=== PATIENT | female | born 1970 | race Caucasian/White ===

== ENCOUNTER 2020-03-14 12:44 | Emergency (ER) | payer SELFPAY ==
[2020-03-14 12:57] VITALS: BP 122/85; PULSE 79; RESP 18; TEMP 36.4; O2SAT 98; BMI 25.8
--- NOTE | 2020-03-14 16:44 | XRR_ITS ---
PROCEDURE INFORMATION: Exam: XR Chest, 1 View Exam date and time: 03/14/2020 4:46 PM Age: 50 years old Clinical indication: Chest pain TECHNIQUE: Imaging protocol: XR of the chest Views: 1 view. COMPARISON: CR Chest 1 [place] [id number] 06/13/2018 6:30 PM FINDINGS: Lungs: Unremarkable. No consolidation. Pleural space: Unremarkable. No pleural effusion. No pneumothorax. Heart/Mediastinum: Unremarkable. No cardiomegaly. Bones/joints: Unremarkable. XR/XR chest 1V portable [id number] IMPRESSION: No acute findings.
--- NOTE | 2020-03-14 16:44 | ECG_ITS ---
[facility] Test Date: 2020-03-14 Pat Name: Mackenzie Daley Department: Room: Gender: Female Fulfillment Representative: : 1970 Requested By: Juan Nails Order Number: [id number] De Santiago MD: Jonnathan Sanabria M.D. Measurements Intervals [place] Rate: 74 P: 58 CA: 130 QRS: 50 QRSD: 86 T: 50 QT: 383 QTc: 426 Interpretive Statements SINUS RHYTHM Compared to ECG 06/13/2018 17:33:41 Ventricular premature complex(es) no longer present Electronically Signed On 03-15-2020 11:01:14 WILL CALL CLERK by Jonnathan Sanabria M.D. [id number]
--- NOTE | 2020-03-14 16:46 | USR_ITS ---
PROCEDURE INFORMATION: Exam: US Pelvis Complete, Transabdominal and US Pelvis, Transvaginal Exam date and time: 03/14/2020 4:51 PM Age: 50 years old Clinical indication: Menstruation abnormalities; Excessive menstruation; Patient HX: H/o leep procedure; Additional info: Vaginal bleeding for weeks TECHNIQUE: Imaging protocol: Real-time transabdominal and transvaginal pelvic ultrasound (complete) with image documentation. Transvaginal imaging was used for better evaluation of the endometrium, adnexa, and/or cervix. COMPARISON: No relevant prior studies available. FINDINGS: Uterus/cervix: Uterus is normal. Endometrial stripe is 10 mm. The uterus measures 10.6 cm x 5.6 cm x 6.7 cm. Right adnexa: is not optimally visualized There is a septated cyst posterior to the right adnexa measuring 6.3 cm x 2.8 cm. This finding may represent a paraovarian cyst Left adnexa: Normal ovary not optimally visualized. Intraperitoneal space: Circumscribed fluid collection in the cul-de-sac right adnexa Urinary bladder: Normal. US/US pelvis lmt w transvag IMPRESSION: 1. Negative uterus and endometrium 2. Septated cyst posterior to the right adnexa possible paraovarian cyst 3. The ovaries are not well visualized.
--- NOTE | 2020-03-14 16:48 | ED_ITS ---
HPI - Chest Pain General: Chief Complaint: Chest Pain Stated Complaint: Chest pain and chest pressure Time Seen by Provider: 03/14/20 16:44 History of Present Illness: HPI narrative: The patient is a 50-year-old female who comes to the ER complaining of midsternal chest pain. She also has a history of anxiety and has been without her Celexa since she moved from [place] over a year ago. Pain does not radiate. The pain started last night and continues this morning and she is anxious about it. Requests for her Celexa prescription to be filled but does not have insurance nor primary care doctor. Also she is 50 years old and for the first time in her life she has had a menstrual period that is lasted more than 2 weeks and she is changing her pad several times a day Timing of current episode: episodic Onset: during rest Pain location: substernal Pain radiation: none Severity: mild Quality: tightness Exacerbating factors: nothing and stress Associated symptoms: Deny abdominal pain, dyspnea or palpitations Review of Systems General: Reports: 10 or more systems reviewed and unremarkable except in HPI and below Const: Denies: fatigue Eyes: Denies: change in vision, blurry vision or eye redness ENMT: Denies: throat pain, swelling of lips/tongue, ear or mastoid pain or nasal congestion Card: Reports: chest pain; Denies: palpitations, irregular heart rhythm, edema, dyspnea on exertion or orthopnea Resp: Denies: dyspnea, productive cough or non-productive cough GI: Denies: abdominal pain, diarrhea or GI cramping : Reports: vaginal bleeding; Denies: flank pain, difficulty voiding, urinary frequency or urinary urgency Musc: Denies: neck pain, back pain, extremity pain, joint pain, joint redness, limited range of motion or muscle weakness Skin/Breast: Denies: rash, pruritus, erythema, skin pain or skin tenderness Neuro: Denies: headache(s), numbness in extremities, weakness in extremities, sensory changes, difficulty walking, dizziness, confusion or Slurred speech present Psych: Denies: anxiety or depression Endo: Denies: polyuria All/Imm: Denies: urticaria, throat swelling or tongue swelling Physical Exam Const: COMMON NORMALS: no acute distress, average body habitus, patient oriented x3, no limitations, healthy appearing, alert and well nourished GENERAL APPEARANCE: cooperative, comfortable, well kempt and well developed ORIENTATION/CONSCIOUSNESS: Yes awake, Yes oriented to person, Yes oriented to place and Yes oriented to time HENMT: COMMON NORMALS: normocephalic, external ears normal and Normal external nose present HEAD & SCALP: normal to inspection and normocephalic NOSE: Normal external nose present EXTERNAL EAR: Yes external ears normal MOUTH: Normal oral and palatal mucosa present THROAT: posterior oropharynx normal Eye: COMMON NORMALS: Equal, round and reactive pupils present and EOMs intact bilaterally GENERAL EYE: appearance normal, both eyes and all related structures PUPIL: Yes Equal, round and reactive pupils present Neck/C-Spine: COMMON NORMALS: full ROM, no lymphadenopathy, no meningeal signs and no JVD GENERAL: Yes normal visual inspection Lymph: LYMPHATIC: no lymphadenopathy noted Chest: COMMONS NORMALS: normal inspection of the chest and normal palpation of entire chest wall Resp: COMMON NORMALS: normal respiratory effort, No retractions, No use of accessory muscles, clear to auscultation bilaterally and percussion normal EFFORT & INSPECTION: Yes able to speak in complete sentences AUSCULTATION: clear to auscultation bilaterally PERCUSSION: percussion normal Cardio: COMMON NORMALS: no JVD, regular rate, regular rhythm, S1 normal heart sound present, S2 normal heart sound present and Peripheral pulses 2+ throughout RATE: regular rate RHYTHM: regular rhythm HEART SOUNDS: S1 normal heart sound present and S2 normal heart sound present PERIPHERAL PULSES: Peripheral pulses 2+ throughout GI: COMMON NORMALS: Normal to inspection, nondistended, normoactive bowel sounds present, Soft to palpation, non-tender and no masses INSPECTION: Yes normal to inspection PALPATION: Yes Soft to palpation : COMMON NORMALS: Yes no CVA tenderness BLADDER/KIDNEY EXAM: Yes no CVA tenderness Back/Pelvis: COMMON NORMALS: no CVA tenderness, thoracic and lumbar spine normal to inspection, no thoracic nor lumbar tenderness and thoraco-lumbar ROM normal Extremity: COMMON NORMALS: normal to inspection, full ROM, capillary refill normal, no joint enlargement and no pedal edema GENERAL: Yes normal exam except as noted Neuro: COMMON NORMALS: patient oriented x3, CN's II-XII intact bilaterally, moves all extremities, no focal motor deficits, no sensory deficits noted and gait normal SENSORIUM/ORIENTATION: Yes alert, Yes oriented to person, Yes oriented to place and Yes oriented to time MENINGEAL SIGNS: Yes no meningeal signs Psych: COMMON NORMALS: mental status grossly normal, Normal thought process present, cooperative, normal affect and speech normal APPEARANCE: Yes well kempt ATTITUDE: Yes calm SPEECH: Yes normal speech THOUGHT PROCESS: Normal thought process present Skin: COMMON NORMALS: no rashes or lesions noted GENERAL SKIN EXAM: no rashes or lesions noted Course Vital Signs: Vital signs: Vital Signs Temperature 97.5 F L 03/14/20 12:57 Pulse Rate 78 03/14/20 19:00 Respiratory Rate 17 03/14/20 19:00 Blood Pressure 124/69 03/14/20 19:00 Pulse Oximetry 100 03/14/20 19:00 MDM - Chest Pain MDM Narrative: Medical decision making narrative: The patient has vaginal bleeding possibly perimenopausal. Her hemoglobin is 9 and stable. Recommended she follow-up with a prevocational/rehabilitation counselor. Case management is going to get in contact with her and help her set up her insurance and get a gynecology and cardiology appointment. The chest pain she was complaining of was relieved by Ativan and did not sound like typical cardiac chest pain though I still feel she should follow-up and possibly get a stress test as she is 50 years old. She understands with the plan of care and will return to the ER with worsening symptoms and follow-up as directed. She says she will not take the Ativan with drugs, alcohol, nor operate machinery while using this medication and only take it for severe panic attacks Lab Data: Labs: Lab Results 03/14/20 03/14/20 03/14/20 Range/Units 17:02 17:02 17:02 WBC 7.6 (4.0-10.0) 10^3/ uL RBC 3.93 L (4.1-5.3) 10^6/u L Hgb 9.0 L (11.5-15.3) g/dL Hct 31.8 L (37.0-47.0) % MCV 80.9 L (81-99) fL MCH 22.9 L (28.0-34.0) pg MCHC 28.3 L (30.0-36.0) g/dL RDW 17.9 H (12.1-15.1) % Plt Count 237 (130-400) 10^3/c mm MPV 11.3 H (7.4-10.4) fL Neut % (Auto) 69.7 % Lymph % (Auto) 22.2 % [place] % (Auto) 5.7 % Eos % (Auto) 1.2 % Baso % (Auto) 0.8 % Neut # (Auto) 5.30 (1.8-7.7) 10^3/u L Lymph # (Auto) 1.7 (0.8-4.8) 10^3/u L [place] # (Auto) 0.4 (0.2-0.9) 10^3/u L Eos # (Auto) 0.1 (0.0-0.8) 10^3/u L Baso # (Auto) 0.1 (0.0-0.1) 10^3/u L Nucleated RBC % (a uto) 0 % Nucleated RBCs # 0.0 /100WBC D-Dimer (0-0.59) ug/mIFE U Sodium 136 (136-145) mmol/L Potassium 3.8 (3.5-5.1) mmol/L Chloride 103 (98-107) mmol/L Carbon Dioxide 24 (22-29) mmol/L Anion Gap 12.8 (5-19) BUN 6 (6-20) mg/dL Creatinine 0.6 (0.5-0.9) mg/dL GFR Calculation 106.3 (90-130) mL/min Glucose 85 (65-115) mg/dL Calculated Osmolal ity 279 L (285-295) mOsm/k g Calcium 8.9 (8.5-10.5) mg/dL Total Bilirubin 0.3 (0.15-1.2) mg/dL AST 16 (0-32) U/L ALT 10 (0-33) U/L Alkaline Phosphata se 50 (35-105) IU/L Troponin T Baselin e 6 (0-10) ng/L Total Protein 6.9 (6.6-8.7) g/dL Albumin 4.1 (3.5-5.2) g/dL Globulin 2.8 (1.3-4.6) g/dL Lipase 40 (13-60) U/L HCG, Qual (Negative) Urine Color (Yellow) Urine Appearance (CLEAR) Urine pH (5-7) Ur Specific Gravit y (1.005-1.030) Urine Protein (Negative) Urine Glucose (UA) (Normal) Urine Ketones (Negative) Urine Blood (Negative) Urine Nitrate (Negative) Urine Bilirubin (Negative) Urine Urobilinogen (Negative) mg/dL Ur Leukocyte Laura ase (Negative) Urine RBC (0-2) /hpf Urine WBC (0-5) /hpf Ur Squamous Epith Cells (0-5) /hpf Amorphous Sediment Urine Bacteria (NONE) /hpf 03/14/20 03/14/20 03/14/20 Range/Units 17:02 18:49 18:49 WBC (4.0-10.0) 10^3/ uL RBC (4.1-5.3) 10^6/u L Hgb (11.5-15.3) g/dL Hct (37.0-47.0) % MCV (81-99) fL MCH (28.0-34.0) pg MCHC (30.0-36.0) g/dL RDW (12.1-15.1) % Plt Count (130-400) 10^3/c mm MPV (7.4-10.4) fL Neut % (Auto) % Lymph % (Auto) % [place] % (Auto) % Eos % (Auto) % Baso % (Auto) % Neut # (Auto) (1.8-7.7) 10^3/u L Lymph # (Auto) (0.8-4.8) 10^3/u L [place] # (Auto) (0.2-0.9) 10^3/u L Eos # (Auto) (0.0-0.8) 10^3/u L Baso # (Auto) (0.0-0.1) 10^3/u L Nucleated RBC % (a uto) % Nucleated RBCs # /100WBC D-Dimer 0.60 H (0-0.59) ug/mIFE U Sodium (136-145) mmol/L Potassium (3.5-5.1) mmol/L Chloride (98-107) mmol/L Carbon Dioxide (22-29) mmol/L Anion Gap (5-19) BUN (6-20) mg/dL Creatinine (0.5-0.9) mg/dL GFR Calculation (90-130) mL/min Glucose (65-115) mg/dL Calculated Osmolal ity (285-295) mOsm/k g Calcium (8.5-10.5) mg/dL Total Bilirubin (0.15-1.2) mg/dL AST (0-32) U/L ALT (0-33) U/L Alkaline Phosphata se (35-105) IU/L Troponin T Baselin e (0-10) ng/L Total Protein (6.6-8.7) g/dL Albumin (3.5-5.2) g/dL Globulin (1.3-4.6) g/dL Lipase (13-60) U/L HCG, Qual Negative (Negative) Urine Color Yellow (Yellow) Urine Appearance Sl hazy (CLEAR) Urine pH 6.5 (5-7) Ur Specific Gravit y 1.005 (1.005-1.030) Urine Protein Neg (Negative) Urine Glucose (UA) Norm (Normal) Urine Ketones Negative (Negative) Urine Blood 3+ H (Negative) Urine Nitrate Negative (Negative) Urine Bilirubin Neg (Negative) Urine Urobilinogen Norm (Negative) mg/dL Ur Leukocyte Laura ase Negative (Negative) Urine RBC >100 H (0-2) /hpf Urine WBC 0-4 H (0-5) /hpf Ur Squamous Epith Cells 5-10 H (0-5) /hpf Amorphous Sediment Not Reportable Urine Bacteria Trace (NONE) /hpf Discharge Plan Discharge Patient Disposition: Home Clinical Impression: Abnormal vaginal bleeding, Anxiety Chest pain Qualifiers: Chest pain type: unspecified Qualified Code(s): R07.9 - Chest pain, unspecified Condition: Stable Prescriptions: New Ativan 0.5 mg tablet 0.5 mg PO Q8H PRN (Reason: anxiety attack) Qty: 5 RF: 0 No Action No Known Home Medications RF: 0 Discharge Orders: Discharge ED (Routine); Ordered 03/14/20 Ordered By: Juan Nails Discharge Diet: Advance as tolerated Discharge Activity: Resume usual activity Patient Instructions: Chest Pain - Noncardiac, Menstruation (ED), Anxiety (ED) Activity Restrictions/Additional Instructions: You have vaginal bleeding which is possibly related to perimenopausal symptoms. Please follow-up with a prevocational/rehabilitation counselor. shipping receiving manager should be calling you within the next day or 2 to discuss an appointment and also help you set up insurance at that time. Your chest pain that you had was relieved by Ativan and is likely caused by your anxiety that we cannot be 100% sure. The window caser should also help you with a cardiology referral at that time for a stress test if the termite control servicer thinks it is appropriate at that time. Return to the ER with worsening symptoms. Please take Ativan only for severe panic attacks and do not mix with drugs alcohol, nor operate machinery while using this medication. Coding Level of Care Code ED [employer] Youth Supervisor for Jaquan Fwtessie Exam Comprehensive
[2020-03-14 17:21] LABS: Basophils # 0.1 10^3/uL (0.0-0.1); Basophils % 0.8 %; Eosinophils # 0.1 10^3/uL (0.0-0.8); Eosinophils % 1.2 %; Hematocrit 31.8 % (37.0-47.0); Lymphocytes # 1.7 10^3/uL (0.8-4.8); Lymphocytes % 22.2 %; Mean Corpuscular HGB Conc 28.3 g/dL (30.0-36.0); Mean Corpuscular Hemoglobin 22.9 pg (28.0-34.0); Mean Corpuscular Volume 80.9 fL (81-99); Mean Platelet Volume 11.3 fL (7.4-10.4); Monocytes # 0.4 10^3/uL (0.2-0.9); Monocytes % 5.7 %; Neutrophils % 69.7 %; Nucleated Red Blood Cells % 0 %; Platelet Count 237 10^3/cmm (130-400); Red Blood Count 3.93 10^6/uL (4.1-5.3); Red Cell Distribution Width 17.9 % (12.1-15.1); White Blood Count 7.6 10^3/uL (4.0-10.0)
[2020-03-14] MEDS: LORazepam 0.5 mg Tablet PO (17:42)
[2020-03-14] MEDS: aspirin 81 mg Chew Tablet 324 MG PO (17:42)
[2020-03-14] MEDS: sodium chloride 0.9% 1,000 ML 999 ML IV (17:44)
[2020-03-14 17:53] VITALS: BP 108/80; PULSE 59; O2SAT 99
[2020-03-14 18:00] LABS: Alanine Aminotransferase 10 U/L (0-33); Albumin Level 4.1 g/dL (3.5-5.2); Alkaline Phosphatase 50 IU/L (35-105); Anion Gap 12.8 (5-19); Aspartate Amino Transferase 16 U/L (0-32); Blood Urea Nitrogen 6 mg/dL (6-20); Calcium 8.9 mg/dL (8.5-10.5); Carbon Dioxide 24 mmol/L (22-29); Chloride 103 mmol/L (98-107); Globulin 2.8 g/dL (1.3-4.6); Glomerular Filtration Rate 106.3 mL/min (90-130); Glucose 85 mg/dL (65-115); Lipase 40 U/L (13-60); Osmolality Calculated 279 mOsm/kg (285-295); Potassium 3.8 mmol/L (3.5-5.1); Sodium 136 mmol/L (136-145); Total Bilirubin 0.3 mg/dL (0.15-1.2); Total Protein 6.9 g/dL (6.6-8.7)
--- NOTE | 2020-03-14 18:00 | CTR_ITS ---
PROCEDURE INFORMATION: Exam: CT Angiography Chest With Contrast Exam date and time: 03/14/2020 6:20 PM Age: 50 years old Clinical indication: Sternal or substernal pain; Patient HX: C/O midsternal cp; Additional info: Chest pain. Elevated d dimer. TECHNIQUE: Imaging protocol: Computed tomographic angiography of the chest with intravenous contrast. 3D rendering (Not supervised by radiologist): MIP and/or 3D reconstructed images were created by the technologist. Radiation optimization: All CT scans at this facility use at least one of these dose optimization techniques: automated exposure control; mA and/or kV adjustment per patient size (includes targeted exams where dose is matched to clinical indication); or iterative reconstruction. Contrast material: OMNI 350; Contrast volume: 70 ml; Contrast route: INTRAVENOUS (IV); COMPARISON: CR (CHEST, ) 03/14/2020 4:48 PM RADIATION DOSE METRICS: Total DLP (mGy-cm): 607.24 FINDINGS: Pulmonary arteries: Normal. No pulmonary emboli. Aorta: Unremarkable. No aortic aneurysm. No aortic dissection. Lungs: Unremarkable. No consolidation. No masses. Pleural space: Unremarkable. No pneumothorax. No pleural effusion. Heart: Unremarkable. No cardiomegaly. No pericardial effusion. Lymph nodes: Unremarkable. No enlarged lymph nodes. Bones/joints: There are degenerative changes in the thoracic spine. There are several mild lower thoracic chronic appearing compression deformities. No evidence for acute fracture. Soft tissues: Unremarkable. CT/CT angio chest PE protcl [id number] IMPRESSION: No evidence for pulmonary embolus. Radiation Dose CTDIVOL = (mGy): DLP = 607.24 (mGy-cm)
[2020-03-14 18:01] LABS: Troponin(5th) Baseline 6 ng/L (0-10)
[2020-03-14] MEDS: iohexol 350 mg/mL 100 mL Btl IV (18:38)
[2020-03-14 18:56] LABS: Glucose Urine UA Norm (Normal); Protein Urine Neg (Negative); Specific Gravity, Urine 1.005 (1.005-1.030); Urine Appearance SL Hazy (CLEAR); Urine Color Yellow (Yellow); pH Urine 6.5 (5-7)
[2020-03-14 18:57] LABS: Add Urine Microscopic? YES; Bilirubin Urine Neg (Negative); Blood Urine 3+ (Negative); Ketones Urine Negative (Negative); Leukocyte Esterase Urine Negative (Negative); Nitrate Urine Negative (Negative); Urobilinogen Urine Norm (Negative)
[2020-03-14 18:59] LABS: HCG Qualitative Urine. Negative (Negative)
[2020-03-14 19:00] VITALS: BP 124/69; PULSE 78; RESP 17; O2SAT 100
[2020-03-14 19:02] LABS: Add Urine Culture? Yes; Bacteria Urine TRACE /hpf; RBC Urine >100 /hpf (0-2); WBC Urine 0-4 /hpf (0-5)
[2020-03-14 19:30] VITALS: BP 124/69; PULSE 78; RESP 17; O2SAT 100
[2020-03-14 19:42] VITALS: BP 124/82; PULSE 75; RESP 17; TEMP 36.6; O2SAT 100
[2020-03-14 19:46] LABS: Troponin 5 2HR Delta 0 ABS# (0-10)
--- NOTE | 2020-03-16 13:50 | DCPLANNER ---
change control manager had message to speak with patient about getting established with a primary care physician, financial institution treasurer, [facility] and cardiology. change control manager spoke with patient, she stated that she does not have any insurance, insurance case manager will mail patient both of the financial institution treasurer applications for the hospital to fill out and turn in. Patient stated that she wanted to wait on getting established with a primary care physician until she sees where she at with the financial institution treasurer. change control manager called [facility], spoke with Mayra, gave clinic patients information. change control manager was told that patients information would be printed and reviewed, clinic will call patient with appointment information. change control manager did tell clinic that financial institution treasurer applications were sent to patient. change control manager informed patient that when she heard from the hospital on where she was at with the financial institution treasurer, that patient will need to call insurance case manager so that patient can be established with a primary care and a referral to heart care can be placed. Patient stated that she would fill out paperwork, and turn it in and when she heard where she was at with the financial institution treasurer that she would call insurance case manager.
== END 2020-03-14 19:42 | disposition home or self-care (01) ==
PROVIDERS: Emergency Provider Family Medicine
DX: R07.9 Chest pain, unspecified (principal); N93.9 Abnormal uterine and vaginal bleeding, unspecified; F41.9 Anxiety disorder, unspecified
CPT/HCPCS: 12345; 36415; 71045; 71275; 76830; 76857; 80053; 81001; 81025; 83690; 84484; 85025; 85378; 87086; 93005; 96360; 99283; 99284; J7030; Q9967